=== PATIENT | female | born 1980 | race Caucasian/White ===

== ENCOUNTER 2021-08-19 03:46 | Emergency (ER) | payer BC ==
[2021-08-19] MEDS: Ondansetron 4 MG/2 ML SDV IVPUSH ONE (04:26)
[2021-08-19] MEDS: Ketorolac 15 MG/ML SDV IVPUSH ONE (04:26)
[2021-08-19 04:40] LABS: ANION GAP 8.3 meq/L (7-15); CHLORIDE,CL 102 mmol/L (98-107); SODIUM,NA 138 mmol/L (136-145)
[2021-08-19] MEDS: Sodium Chloride 0.9% 1,000 ML IV ONE (06:00)
[2021-08-19] MEDS: Lactulose Soln 10 GM/15 ML 30 ML UD Cup PO ONE (08:30)
== END 2021-08-19 08:40 | disposition home or self-care (01) ==
LOC: LL.ED 03:46
DX: R10.12 Left upper quadrant pain (principal)
CPT/HCPCS: 36415; 74019; 74176; 80053; 81003; 81025; 83605; 83735; 84484; 85025; 96361; 96365; 96375; 99284; 99284-25; A9270-GY; J1885; J2405; J3475; J7030

== ENCOUNTER 2023-10-08 09:28 | Day surgery (SDC) | payer BC ==
[2023-10-08] MEDS ORDERED: Sodium Chloride 0.9% 10 ML Syringe FLUSH PRN (09:30)
[2023-10-08] MEDS: Lactated Ringers 1,000 ML IV SCH (09:48)
[2023-10-08] MEDS: Scopalamine 1mg/3day Transdermal Patch TRDERM PRN (10:21)
[2023-10-08] MEDS ORDERED: Propofol 200 MG/20 ML SDV ONE (10:44)
[2023-10-08] MEDS ORDERED: Midazolam 1 MG/ML 2 ML SDV ONE (10:56)
[2023-10-08] MEDS ORDERED: Lidocaine 2% 5 ML SDV ONE (10:58)
[2023-10-08] MEDS ORDERED: Ondansetron 4 MG/2 ML SDV IVPUSH ONE (10:58)
== END 2023-10-08 12:35 | disposition home or self-care (01) ==
LOC: LL.SDS 09:28
PROVIDERS: ATTEND Surgery
DX: K29.50 Unspecified chronic gastritis without bleeding (principal)
CPT/HCPCS: A9270-GY; J2250; J2405; J2704; J3490; J7120